=== PATIENT | male | born 1995 | race Caucasian/White ===

== ENCOUNTER 2020-05-14 12:33 | Emergency (ER) | payer OTHER, SELFPAY ==
--- NOTE | ~2020-05-14 | XR_ITS ---
XR hand LT min 3V 05/14/2020 13:09 Indication: Left hand pain Procedure: 3 views left hand Comparison: No prior studies for comparison. Findings: There is a nondisplaced extra-articular fracture of the fifth metacarpal neck with overlyin g soft tissue swelling. Mild volar angulation. No foreign bodies. No other fracture is identified. Impression: 1: Nondisplaced extra-articular fracture fifth metacarpal neck with mild volar angulation. Reviewed, dictated and finalized at location [facility] [employer] Impression: 1: Nondisplaced extra-articular fracture fifth metacarpal neck with mild volar angulation.
[2020-05-14 12:33] VITALS: BP 105/50; PULSE 92; RESP 14; TEMP 36.3; O2SAT 97
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
--- NOTE | 2020-05-14 13:53 | PC.NURSE ---
ulnar gutter ocl placed on left hand as ordered by erp
[2020-05-14 13:58] VITALS: PULSE 80; RESP 15; TEMP 36.6; O2SAT 99
== END 2020-05-14 14:14 | disposition home or self-care (01) ==
PROVIDERS: Emergency Provider Emergency Medicine
DX: S62.337A Displaced fracture of neck of fifth metacarpal bone, left hand, initial encounter for closed fracture (principal); W51.XXXA Accidental striking against or bumped into by another person, initial encounter
CPT/HCPCS: 29125; 73130; 99283; 99284